=== PATIENT | male | born 1980 | race Caucasian/White ===

== ENCOUNTER → 2019-02-25 | Outpatient (CLI) | payer BC ==
[~2019-02-25] MED LIST: NONE PER PT
[2019-02-25 12:07] LABS: MD NO
[2019-02-25 12:11] LABS: INTERNATIONAL NORMALIZED RATIO 0.95 (0.93-1.1)
[2019-02-25 12:19] LABS: BASOPHILS # (AUTO) 0.03 x10^3/uL (0-0.1); BASOPHILS % (AUTO) 0 % (0-1); EOSINOPHILS # (AUTO) 0.28 x10^3/uL (0-0.4); EOSINOPHILS % (AUTO) 4 % (1-7); LYMPHOCYTES # (AUTO) 2.99 x10^3/uL (1-3.4); LYMPHOCYTES % (AUTO) 38 % (22-44); MEAN CORPUSCULAR HEMOGLOBIN 32.4 pg (27.5-34.5); MEAN CORPUSCULAR HGB CONC 33.9 g/dL (33.2-36.2); MEAN CORPUSCULAR VOLUME 95.5 fL (81-97); MEAN PLATELET VOLUME 8.3 fL (7.4-10.4); MONOCYTES # (AUTO) 0.83 x10^3/uL (0.2-0.8); MONOCYTES % (AUTO) 11 % (2-9); NEUTROPHILS # (AUTO) 3.71 x10^3/uL (1.8-6.8); NEUTROPHILS % (AUTO) 47 % (42-75); PLATELET COUNT 273 x10^3/uL (130-400); RED BLOOD COUNT 5.05 x10^6/uL (4.38-5.82); RED CELL DISTRIBUTION WIDTH 13.2 % (9.4-14.8)
[2019-02-25 12:23] LABS: CHLORIDE 109 mmol/L (98-107)
[2019-02-25 12:33] LABS: ANION GAP 8 mmol/L (5-15); CALCIUM 8.7 mg/dL (8.5-10.1); CREATININE 0.87 mg/dL (0.7-1.3)
== END | disposition home or self-care (01) ==
LOC: STAR 11:06
PROVIDERS: ATTEND Neurological Surgery
DX: Z01.818 Encounter for other preprocedural examination (principal); M71.38 Other bursal cyst, other site; M43.16 Spondylolisthesis, lumbar region; R94.31 Abnormal electrocardiogram [ECG] [EKG]
CPT/HCPCS: 36415; 72110; 80048; 85025; 85610; 85730; 93005

== ENCOUNTER 2019-03-04 07:25 | Inpatient (IN) | payer BC ==
[~2019-03-04] VITALS: Ht 176.5 cm; Wt 85.2 kg
[2019-03-04] MEDS ORDERED: LACTATED RINGERS 1,000 ML IV SCH (07:51)
[2019-03-04 07:52] VITALS: BP 120/73
[2019-03-04] MEDS ORDERED: ACETAMINOPHEN 500 MG TABLET ONE (08:22)
[2019-03-04] MEDS ORDERED: GABAPENTIN 300 MG CAPSULE ONE (08:22)
[2019-03-04] MEDS ORDERED: GABAPENTIN 300 MG CAPSULE PO ONE (08:30)
[2019-03-04] MEDS ORDERED: ACETAMINOPHEN 500 MG TABLET PO ONE (08:30)
[2019-03-04] MEDS ORDERED: FENTANYL PF 250 MCG/5ML ONE (10:03)
[2019-03-04] MEDS ORDERED: MIDAZOLAM 1 MG/ML, 2ML ONE (10:03)
[2019-03-04] MEDS ORDERED: ROCURONIUM 10MG/ML,5ML ONE (10:08)
[2019-03-04] MEDS ORDERED: PROPOFOL 10 MG/ML, 20ML ONE (10:08)
[2019-03-04] MEDS ORDERED: NEOSTIGMINE 1 MG/ML, 10ML ONE (10:08)
[2019-03-04] MEDS ORDERED: GLYCOPYRROLATE 0.2MG/1ML, 5ML ONE (10:08)
[2019-03-04] MEDS ORDERED: CEFAZOLIN 1,000 MG ONE (10:08)
[2019-03-04] MEDS ORDERED: methylPREDNISolone *ACETATE* 40 MG/ML ONE (11:25)
[2019-03-04] MEDS ORDERED: BUPIVACAINE/EPI 0.5% 1:200K ONE (11:25)
[2019-03-04] MEDS ORDERED: BACITRACIN OINT 500U/GM, 15 GM ONE (11:25)
[2019-03-04] MEDS ORDERED: THROMBIN 5,000 UNIT VIAL TP ONE (11:25)
[2019-03-04] MEDS ORDERED: BACITRACIN 50,000 UNIT ONE (11:25)
[2019-03-04] MEDS ORDERED: PROMETHAZINE 12.5 MG SUPP PR PRN (12:00)
[2019-03-04] MEDS ORDERED: LABETALOL 5MG/ML, 20ML IV PRN (12:00)
[2019-03-04] MEDS ORDERED: hydrALAzine 20 MG/ML, 1ML IV PRN (12:00)
[2019-03-04] MEDS ORDERED: FENTANYL PF 100 MCG/2ML IV PRN (12:00)
[2019-03-04] MEDS ORDERED: PROMETHAZINE 25 MG/ML, 1ML IM PRN ×2 (12:00)
[2019-03-04] MEDS ORDERED: MORPHINE SULFATE 4 MG/ML, 1ML IVPush PRN (12:00)
[2019-03-04] MEDS ORDERED: ONDANSETRON ODT 8 MG PO PRN (12:00)
[2019-03-04] MEDS ORDERED: MEPERIDINE/PF 25MG/0.5ML IVPush PRN (12:00)
[2019-03-04] MEDS ORDERED: PROMETHAZINE 25 MG/ML, 1ML IV PRN (12:00)
[2019-03-04] MEDS ORDERED: PROMETHAZINE 25 MG SUPP PR PRN (12:00)
[2019-03-04] MEDS ORDERED: OXYcodone 5 MG/5 ML ORAL.SOL UDC PO PRN (12:00)
[2019-03-04] MEDS ORDERED: ONDANSETRON 2MG/ML, 2ML IV PRN (12:00)
[2019-03-04] MEDS ORDERED: HYDROmorphone 2 MG/ML, 1ML IVPush PRN (12:00)
[2019-03-04] MEDS ORDERED: FENTANYL PF 100 MCG/2ML ONE (13:05)
[2019-03-04] MEDS ORDERED: OXYcodone 5 MG/5 ML ORAL.SOL UDC ONE (13:33)
== END 2019-03-04 17:15 | disposition home or self-care (01) | DRG 520 ==
LOC: ORIP 07:25
PROVIDERS: ADMIT Neurological Surgery; ATTEND Neurological Surgery
PROC: 00NY0ZZ Release Lumbar Spinal Cord, Open Approach (ICD-10-PCS; principal; 2019-03-04 10:30)
DX: M71.38 Other bursal cyst, other site (principal); I10 Essential (primary) hypertension; F17.210 Nicotine dependence, cigarettes, uncomplicated; Z86.73 Personal history of transient ischemic attack (TIA), and cerebral infarction without residual deficits; Z88.0 Allergy status to penicillin
CPT/HCPCS: 36415; 72100; 86850; 86870; 86900; 86922; 86923; 88305; J0690; J2250; J2704; J2710; J3010; J1030; J7120